=== PATIENT | female | born 1960 | race Two or more races ===

== ENCOUNTER 2017-12-08 14:48 | Outpatient (CLI) | payer OTHER ==
[~2017-12-08 14:48] MED LIST: ALLEGRA ALLERG180 MG PO; FLONASE16 GM NS; GILTUSS TR TAB1 EACH PO; NO SABE NOMBRE; SYNTHROID50 MCG PO; TESSALON PERLE100 M1 PO; ULTRACET PO; ZYRTEC10 MG PO
== END 2017-12-08 15:09 | disposition home or self-care (01) ==
LOC: RAD 14:48
DX: M12.9 Arthropathy, unspecified (principal); M19.90 Unspecified osteoarthritis, unspecified site; M46.47 Discitis, unspecified, lumbosacral region

== ENCOUNTER 2017-12-10 13:11 | Outpatient (CLI) | payer OTHER | END 2017-12-10 13:26 | disposition home or self-care (01) | LOC: LAB 13:11 | DX: I10 Essential (primary) hypertension (principal); E11.9 Type 2 diabetes mellitus without complications; E03.8 Other specified hypothyroidism; E78.2 Mixed hyperlipidemia; M81.0 Age-related osteoporosis without current pathological fracture; M19.90 Unspecified osteoarthritis, unspecified site ==

== ENCOUNTER 2018-05-02 13:22 | Outpatient (CLI) | payer OTHER | END 2018-05-02 13:28 | disposition home or self-care (01) | LOC: LAB 13:22 | DX: E01.8 Other iodine-deficiency related thyroid disorders and allied conditions (principal); E16.2 Hypoglycemia, unspecified; N39.0 Urinary tract infection, site not specified; E78.2 Mixed hyperlipidemia; E56.9 Vitamin deficiency, unspecified; E55.9 Vitamin D deficiency, unspecified; R97.1 Elevated cancer antigen 125 [CA 125]; R53.1 Weakness; E66.01 Morbid (severe) obesity due to excess calories ==

== ENCOUNTER 2018-05-02 14:07 | Outpatient (CLI) | payer OTHER | END 2018-05-02 14:37 | disposition home or self-care (01) | LOC: MAMO-SONO 14:07 | DX: Z12.31 Encounter for screening mammogram for malignant neoplasm of breast (principal); N60.01 Solitary cyst of right breast; N60.02 Solitary cyst of left breast; D24.1 Benign neoplasm of right breast; D24.2 Benign neoplasm of left breast; R22.1 Localized swelling, mass and lump, neck; E03.8 Other specified hypothyroidism; E04.8 Other specified nontoxic goiter ==

== ENCOUNTER 2018-05-20 12:26 | Outpatient (CLI) | payer OTHER | END 2018-05-20 12:49 | disposition home or self-care (01) | LOC: SONOGRAMA 12:26 | DX: N60.11 Diffuse cystic mastopathy of right breast (principal); N60.12 Diffuse cystic mastopathy of left breast; N63.13 Unspecified lump in the right breast, lower outer quadrant ==

== ENCOUNTER → 2018-07-12 16:23 | Outpatient (CLI) | payer OTHER | END | disposition home or self-care (01) | LOC: LAB 16:23 | DX: N18.2 Chronic kidney disease, stage 2 (mild) (principal) ==

== ENCOUNTER → 2018-08-05 | Outpatient (CLI) | payer OTHER ==
[~2018-08-05] MED LIST changes: +DOLOGESIC 500-1 EACH PO
== END | disposition home or self-care (01) ==
LOC: MAMO-SONO 10:12
DX: R92.0 Mammographic microcalcification found on diagnostic imaging of breast (principal); N60.11 Diffuse cystic mastopathy of right breast; N60.12 Diffuse cystic mastopathy of left breast

== ENCOUNTER → 2018-08-11 12:33 | Outpatient (CLI) | payer OTHER | END | disposition home or self-care (01) | LOC: EKG 12:33 | DX: I10 Essential (primary) hypertension (principal) ==

== ENCOUNTER → 2018-09-09 | Day surgery (SDC) | payer OTHER ==
[~2018-09-09] MED LIST changes: +LOSARTAN POTASS25 MG PO
== END | disposition home or self-care (01) ==
LOC: CIR.AMB 06:43
DX: D24.1 Benign neoplasm of right breast (principal)

== ENCOUNTER 2018-11-10 15:19 | Outpatient (CLI) | payer OTHER | END 2018-11-10 15:29 | disposition home or self-care (01) | LOC: LAB 15:19 | DX: N95.1 Menopausal and female climacteric states (principal); E03.8 Other specified hypothyroidism ==

== ENCOUNTER 2018-12-02 10:45 | Outpatient (CLI) | payer OTHER | END 2018-12-02 17:36 | disposition home or self-care (01) | LOC: LAB 10:45 | DX: E03.8 Other specified hypothyroidism (principal); E78.2 Mixed hyperlipidemia; D64.89 Other specified anemias; E55.9 Vitamin D deficiency, unspecified; E28.310 Symptomatic premature menopause; N39.0 Urinary tract infection, site not specified ==

== ENCOUNTER 2018-12-02 12:19 | Outpatient (CLI) | payer OTHER | END 2018-12-02 12:34 | disposition home or self-care (01) | LOC: SONOGRAMA 12:19 | DX: E04.1 Nontoxic single thyroid nodule (principal) ==

== ENCOUNTER 2018-12-12 07:45 | Outpatient (CLI) | payer OTHER | END 2018-12-12 07:59 | disposition home or self-care (01) | LOC: TOM 07:45 | DX: R10.9 Unspecified abdominal pain (principal); R42 Dizziness and giddiness; E24.8 Other Cushing's syndrome ==

== ENCOUNTER → 2018-12-12 | Outpatient (CLI) | payer OTHER | END | disposition home or self-care (01) | LOC: NUCLEAR 10:29 | DX: M81.0 Age-related osteoporosis without current pathological fracture (principal) ==

== ENCOUNTER 2019-03-23 08:56 | Outpatient (CLI) | payer OTHER | END 2019-03-23 15:00 | disposition home or self-care (01) | LOC: LAB 08:56 | DX: E11.9 Type 2 diabetes mellitus without complications (principal); E03.8 Other specified hypothyroidism; E78.2 Mixed hyperlipidemia; E55.9 Vitamin D deficiency, unspecified; M81.0 Age-related osteoporosis without current pathological fracture; I10 Essential (primary) hypertension ==

== ENCOUNTER → 2019-03-29 | Outpatient (CLI) | payer OTHER | END | disposition home or self-care (01) | LOC: MAMO-SONO 15:15 | DX: N60.11 Diffuse cystic mastopathy of right breast (principal); N60.12 Diffuse cystic mastopathy of left breast ==

== ENCOUNTER 2019-06-13 09:08 | Outpatient (CLI) | payer OTHER | END 2019-06-13 09:10 | disposition home or self-care (01) | LOC: NUCLEAR 09:08 | DX: I49.8 Other specified cardiac arrhythmias (principal); R01.1 Cardiac murmur, unspecified; R00.2 Palpitations; I65.23 Occlusion and stenosis of bilateral carotid arteries ==

== ENCOUNTER → 2019-06-13 10:57 | Outpatient (CLI) | payer OTHER | END | disposition home or self-care (01) | LOC: LAB 10:57 | DX: I11.9 Hypertensive heart disease without heart failure (principal) ==

== ENCOUNTER 2019-11-07 08:32 | Outpatient (CLI) | payer OTHER | END 2019-11-07 08:36 | disposition home or self-care (01) | LOC: LAB 08:32 | DX: E78.2 Mixed hyperlipidemia (principal); I10 Essential (primary) hypertension; E11.9 Type 2 diabetes mellitus without complications; E03.8 Other specified hypothyroidism ==

== ENCOUNTER 2019-11-23 14:44 | Outpatient (CLI) | payer OTHER | END 2019-11-23 15:32 | disposition home or self-care (01) | LOC: LAB 14:44 | DX: J11.1 Influenza due to unidentified influenza virus with other respiratory manifestations (principal); J06.9 Acute upper respiratory infection, unspecified ==

== ENCOUNTER 2019-12-06 11:33 | Outpatient (CLI) | payer OTHER | END 2019-12-06 11:43 | disposition home or self-care (01) | LOC: LAB 11:33 | DX: E16.1 Other hypoglycemia (principal); N39.0 Urinary tract infection, site not specified; E78.2 Mixed hyperlipidemia; E55.9 Vitamin D deficiency, unspecified; E03.8 Other specified hypothyroidism; R97.1 Elevated cancer antigen 125 [CA 125]; R53.1 Weakness; E66.01 Morbid (severe) obesity due to excess calories; Z11.3 Encounter for screening for infections with a predominantly sexual mode of transmission; E56.8 Deficiency of other vitamins ==

== ENCOUNTER → 2019-12-30 08:46 | Outpatient (CLI) | payer OTHER | END | disposition home or self-care (01) | LOC: LAB 08:46 | DX: G31.1 Senile degeneration of brain, not elsewhere classified (principal) ==

== ENCOUNTER 2020-04-10 10:02 | Outpatient (CLI) | payer OTHER | END 2020-04-10 11:01 | disposition home or self-care (01) | LOC: RAD 10:02 | DX: M54.2 Cervicalgia (principal); M54.5 Low back pain ==

== ENCOUNTER 2020-04-22 09:27 | Outpatient (CLI) | payer OTHER | END 2020-04-22 10:25 | disposition home or self-care (01) | LOC: NUCLEAR 09:27 | PROVIDERS: ATTEND Physical Medicine & Rehabilitation | DX: R60.0 Localized edema (principal) ==

== ENCOUNTER 2020-08-06 10:23 | Outpatient (CLI) | payer OTHER | END 2020-08-06 10:37 | disposition home or self-care (01) | LOC: SONOGRAMA 10:23 | PROVIDERS: ATTEND Internal Medicine Endocrinology, Diabetes & Metabolism | DX: E04.1 Nontoxic single thyroid nodule (principal) ==

== ENCOUNTER 2021-02-24 09:18 | Outpatient (CLI) | payer OTHER | END 2021-02-24 09:39 | disposition home or self-care (01) | LOC: MAMO-SONO 09:18 | PROVIDERS: ATTEND Obstetrics & Gynecology | DX: R10.2 Pelvic and perineal pain (principal); N64.4 Mastodynia ==

== ENCOUNTER 2021-03-11 14:28 | Outpatient (CLI) | payer OTHER | END 2021-03-11 14:36 | disposition home or self-care (01) | LOC: NUCLEAR 14:28 | PROVIDERS: ATTEND Obstetrics & Gynecology | DX: M81.0 Age-related osteoporosis without current pathological fracture (principal) ==

== ENCOUNTER 2021-04-11 12:43 | Outpatient (CLI) | payer OTHER | END 2021-04-11 13:11 | disposition home or self-care (01) | LOC: SONOGRAMA 12:43 | PROVIDERS: ATTEND Surgery | DX: D24.2 Benign neoplasm of left breast (principal); N60.11 Diffuse cystic mastopathy of right breast; N60.12 Diffuse cystic mastopathy of left breast ==

== ENCOUNTER 2021-07-23 06:27 | Day surgery (SDC) | payer OTHER | END 2021-07-23 15:50 | disposition home or self-care (01) | LOC: CIR.AMB 06:27 | PROVIDERS: ATTEND Surgery Surgery of the Hand | DX: M65.841 Other synovitis and tenosynovitis, right hand (principal); M24.641 Ankylosis, right hand; Z20.822 Contact with and (suspected) exposure to COVID-19 ==

== ENCOUNTER 2021-08-25 08:46 | Outpatient (CLI) | payer OTHER | END 2021-08-25 09:05 | disposition home or self-care (01) | LOC: MAMO-SONO 08:46 | PROVIDERS: ATTEND Surgery | DX: N60.12 Diffuse cystic mastopathy of left breast (principal); N64.89 Other specified disorders of breast ==

== ENCOUNTER 2022-01-06 12:31 | Outpatient (CLI) | payer OTHER ==
[~2022-01-06 12:31] MED LIST changes: +SKELAXIN800 MG PO
== END 2022-01-06 12:46 | disposition home or self-care (01) ==
LOC: RAD 12:31
PROVIDERS: ATTEND Physical Medicine & Rehabilitation
DX: M77.11 Lateral epicondylitis, right elbow (principal); M77.01 Medial epicondylitis, right elbow; M54.2 Cervicalgia; M77.10 Lateral epicondylitis, unspecified elbow

== ENCOUNTER 2022-01-27 14:22 | Outpatient (CLI) | payer OTHER | END 2022-01-27 14:35 | disposition home or self-care (01) | LOC: RAD 14:22 | PROVIDERS: ATTEND Chiropractor | DX: M54.12 Radiculopathy, cervical region (principal); M54.40 Lumbago with sciatica, unspecified side; M47.817 Spondylosis without myelopathy or radiculopathy, lumbosacral region; M50.10 Cervical disc disorder with radiculopathy, unspecified cervical region; M99.01 Segmental and somatic dysfunction of cervical region; M99.02 Segmental and somatic dysfunction of thoracic region; M99.03 Segmental and somatic dysfunction of lumbar region; M99.04 Segmental and somatic dysfunction of sacral region; M99.05 Segmental and somatic dysfunction of pelvic region ==

== ENCOUNTER 2022-03-03 07:15 | Outpatient (CLI) | payer OTHER | END 2022-03-03 13:18 | disposition home or self-care (01) | LOC: MAMO-SONO 07:15 | PROVIDERS: ATTEND Surgery | DX: N60.11 Diffuse cystic mastopathy of right breast (principal); N60.12 Diffuse cystic mastopathy of left breast ==

== ENCOUNTER 2022-07-01 13:04 | Outpatient (CLI) | payer OTHER | END 2022-07-01 13:07 | disposition home or self-care (01) | LOC: NUCLEAR 13:04 | PROVIDERS: ATTEND Specialist/Technologist, Other Nephrology | DX: N13.71 Vesicoureteral-reflux without reflux nephropathy (principal); N18.1 Chronic kidney disease, stage 1; N13.9 Obstructive and reflux uropathy, unspecified; Z88.8 Allergy status to other drugs, medicaments and biological substances; Z88.6 Allergy status to analgesic agent | CPT/HCPCS: 78708; A9539; J1940 ==

== ENCOUNTER 2023-11-17 15:26 | Outpatient (CLI) | payer OTHER | END 2023-11-17 15:32 | disposition home or self-care (01) | LOC: RAD 15:26 | PROVIDERS: ATTEND Internal Medicine Cardiovascular Disease | DX: M12.9 Arthropathy, unspecified (principal) ==

== ENCOUNTER 2025-08-08 06:00 | Day surgery (SDC) | payer OTHER ==
[2025-08-08] MEDS ORDERED: NALOXONE HCL 0.4 MG/ML AMPUL IV STA (14:08)
[2025-08-08] MEDS ORDERED: FLUMAZENIL 0.5 MG/5 ML ML IV STA (14:08)
[2025-08-08] MEDS ORDERED: ONDANSETRON HCL 2 MG/ML VIAL IV ONE (14:15)
[2025-08-08] MEDS ORDERED: DIPHENHYDRAMINE HCL 50 MG/ML VIAL 1ML IV ONE (14:15)
[2025-08-08] MEDS ORDERED: MIDAZOLAM HCL 2 MG/2 ML VIAL IV ONE (14:15)
[2025-08-08] MEDS ORDERED: fentaNYL CITRATE 50 MCG/ML AMPUL IV PUSH ONE (14:15)
== END 2025-08-08 15:20 | disposition home or self-care (01) ==
LOC: AMB-ENDOS 06:00
PROVIDERS: ATTEND Colon & Rectal Surgery
DX: K63.5 Polyp of colon (principal); D12.2 Benign neoplasm of ascending colon; D12.4 Benign neoplasm of descending colon; D12.3 Benign neoplasm of transverse colon; K57.30 Diverticulosis of large intestine without perforation or abscess without bleeding; Z86.0100 Personal history of colon polyps, unspecified; Z12.11 Encounter for screening for malignant neoplasm of colon; Z88.8 Allergy status to other drugs, medicaments and biological substances

== ENCOUNTER 2025-10-25 11:35 | Outpatient (CLI) | payer OTHER | END 2025-10-25 11:38 | disposition home or self-care (01) | LOC: RAD 11:35 | PROVIDERS: ATTEND Internal Medicine Cardiovascular Disease | DX: M19.90 Unspecified osteoarthritis, unspecified site (principal) ==

== ENCOUNTER 2025-10-29 10:49 | Outpatient (CLI) | payer OTHER | END 2025-10-29 10:55 | disposition home or self-care (01) | LOC: SONOGRAMA 10:49 | PROVIDERS: ATTEND Internal Medicine Cardiovascular Disease | DX: M19.90 Unspecified osteoarthritis, unspecified site (principal) ==